=== PATIENT | male | born 1935 | race Caucasian/White ===

== ENCOUNTER 2016-09-16 13:03 | Emergency (ER) | payer OTHER ==
[2016-09-16] MEDS ORDERED: LORazepam 2 MG/1 ML VIAL IVP ONE (13:19)
[2016-09-16] MEDS ORDERED: ONDANSETRON 4 MG/2 ML VIAL IVP ONE (13:19)
--- NOTE | 2016-09-16 13:24 | PDOC ---
Altered Mental Status HPI - General Chief Complaint: Altered Mental Status Stated Complaint: ALTERED MENTAL STATUS, LOW EXT EDEMA Date Seen by Provider: 09/16/16 Time Seen by Provider: 13:20 Source: POSITIVE: Patient, Police, EMS Exam Limitations: POSITIVE: Clinical condition Nurse's Notes Reviewed & Considered: Yes - History of Present Illness Initial Comments: This is an 81-year-old male who comes in with tangential thoughts and pressured speech. Patient was brought in by Police Department because of altered mental status with pressured speech and tangential thoughts. He was seen in [facility] just a few days ago. His son, who lives in [place], has been contacted. His son states that he had a rapid change in mental status. Review of systems is unavailable because of the patient's clinical condition. Timing: REPORTS: Unknown Duration: Unknown Patient Normals: REPORTS: Alert, Oriented x3 Similar Symptoms Previously: Yes Recent Care Received: REPORTS: Recently Seen, Treated by MD Any Prior Injuries Related to Current Complaint?: No - Patient Allergies Allergies/Adverse Reactions: Allergies Allergy/AdvReac Type Severity Reaction Status Date / Time No Known Allergies Allergy Unverified 09/16/16 13:30 ROS - Limitations ROS Limitations: Mental Impairment, Other (please comment) (Due to patient's tangential thoughts and pressured speech further review of systems is unavailable.) Altered Mental Physical Exam - General Appearance General Appearance: POSITIVE: Alert, Cooperative - HEENT HEENT: POSITIVE: Head Inspection Nml, Eyes Inspection Nml, Ears Inspection Nml, Nose Inspection Nml, Oral/Dental Inspect. Nml, Pharynx Inspect. Nml, PERRL, EOMI , Dry Mucous Membranes - Pupil Size Pupil Size: 4 mm: Bilateral - Neuro/Psych Neurological: POSITIVE: Denies Neuro Symptoms Cranial Nerves: POSITIVE: Normal As Tested, No Evidence of Acute CVA Cerebellar: POSITIVE: Normal As Tested Peripheral Exam: POSITIVE: No Motor Deficits, No Sensory Deficits, Reflexes Normal Reflexes: Patellar (R): 3+, Patellar (L): 3+, Radial (R): 3+, Radial (L): 3+ - Neck Neck: POSITIVE: Supple, Non Tender - Respiratory Respiratory: POSITIVE: No Respiratory Distress, Breath Sounds Normal - Cardiovascular CVS: POSITIVE: Regular Rate and Rhythm, Heart Sounds Normal - Abdomen Abdomen: Soft: (All Quadrants), Normal Bowel Sounds: (All Quadrants), Denies Tenderness: (All Quadrants), No Splenomegaly: (All Quadrants), No Hepatomegaly: (All Quadrants), No Guarding: (All Quadrants), No Rebound: (All Quadrants), No Palpable Pulse: (All Quadrants), No Palpabale Mass: (All Quadrants), No Distention: (All Quadrants), No Rigidity: (All Quadrants) - Skin Skin: POSITIVE: Normal for Race, No Rash, Warm, Dry - Extremities Extremity: Non-Tender: (All Extremities), Normal ROM: (All Extremities), Normal Inspection: (All Extremities) Altered Mental Status - Results Reviewed By Me Xrays/CTs/US Reviewed: Yes Lab Results Reviewed: Yes Lab Results:: Laboratory Results 09/16/16 09/16/16 09/16/16 Range/Units 13:19 13:32 17:42 WBC 8.04 (4.8-10.8) 10^3/uL RBC 4.64 L (4.70-6.10) 10^6/uL Hgb 14.3 (14.0-18.0) g/dL Hct 41.5 L (42.0-52.0) % MCV 89.4 (80-90) FL MCH 30.8 (27-31) PG MCHC 34.5 (33-37) g/dL RDW Std Deviation 49.8 (39-50) fL RDW Coeff of Jayson 15.5 H (11.5-14.5) % Plt Count 173 (140-350) 10*3/uL MPV 9.7 (7.4-12.2) FL Immature Gran % (Auto) 0.1 (0-5) % Neut % (Auto) 79.9 (50-80) % Lymph % (Auto) 9.3 L (10-50) % [place] % (Auto) 9.6 (5-15) % Eos % (Auto) 0.9 (0-8) % Baso % (Auto) 0.2 (0-1) % Immature Gran # (Auto) 0.01 10*3/UL Neut # (Auto) 6.42 10*3/UL Lymph # (Auto) 0.75 10*3/uL [place] # (Auto) 0.77 (0.3-0.8) 10*3/UL Eos # (Auto) 0.07 10*3/UL Baso # (Auto) 0.02 10*3/UL WBC Morphology Comment Normal morphology (NORM) Plt Morphology Comment Normal morphology (NORM) RBC Morph Comment Normal morphology (NORM) Sodium 144 (135-145) meq/L Potassium 3.7 L (3.8-5.2) meq/L Chloride 109 (98-112) meq/L Carbon Dioxide 24 (23-33) meq/L Anion Gap 11 (5-20) BUN 25 H (7-22) mg/dL Creatinine 1.0 (0.70-1.50) mg/dL Estimated GFR (>60 ml/min/1.73m(2)) BUN/Creatinine Ratio 25.00 H (6-20) Glucose 97 (78-110) mg/dL Calculated Osmolality 301.0 H (267-292) mOsm/kg Calcium 9.1 (8.7-10.7) mg/dL Magnesium 2.2 (1.6-2.4) mg/dL Total Bilirubin 1.4 H (0.3-1.2) mg/dL GGT 27 (8-78) IU/L AST 39 (21-57) IU/L ALT 44 (21-72) IU/L Alkaline Phosphatase 91 (38-126) IU/L NT-Pro-B Natriuret Pep 516 H (0-450) PG/ML Total Protein 6.2 (6.1-8.0) g/dL Albumin 3.6 (3.5-4.8) g/dL Globulin 2.6 (2.50-4.10) g/dL Albumin/Globulin Ratio 1.30 (1.3-2.0) mg/g TSH 1.91 (0.2700-4.2000) uIU/mL Free T4 1.39 (0.93-1.71) ng/dL Ur Collection Type Clean catch urine Urine Color Yellow Urine Clarity Slightly cloudy (CLEAR) Urine pH 5.5 (5.0-8.5) Ur Specific [place] >=1.030 (1.005-1.030) U Specif Grav (Refrac) 1.030 Urine Protein 100 (NEG) mg/dl Urine Glucose (UA) Negative (NEG) mg/dL Urine Ketones 80 (NEG) Urine Occult Blood Large H (NEG) Urine Nitrate Positive H (NEG) Urine Bilirubin Small (NEG) Urine Urobilinogen 1.0 (0.2) EU/dL Ur Leukocyte Esterase Small (NEG) Urine RBC 1-3 (NONE) /hpf Urine WBC 15-24 (NONE) Ur Squamous Epith Cells Few (NONE) Ur Renal Epithelial Cell None (NONE) Urine Crystals None Urine Bacteria Few (NONE) Urine Casts None (NONE) Urine Mucus Few (NONE) Urine Trichomonas None (NONE) Urine Yeast None (NONE) Ur Culture Indicated? Culture set Salicylates < 1.0 (0-20) mg/dl Urine Opiates Screen Negative (NEG) Ur Buprenorphine Negative (NEG) Ur Oxycodone Screen Negative (NEG) Urine Methadone Screen Negative (NEG) Ur Propoxyphene Screen Negative (NEG) Acetaminophen < 10.0 (0-30) ug/mL Barbiturate Screen Negative (NEG) U Tricyclic Antidepress Negative (NEG) Phencyclidine Screen Negative (NEG) Amphetamines Screen Negative (NEG) U Methamphetamines Scrn Negative (NEG) Benzodiazepines Screen Positive H (NEG) Cocaine Screen Negative (NEG) U Marijuana (THC) Screen Negative (NEG) Serum Alcohol < 10 (0-10) mg/dL EKG Interpreted/Reviewed By Me:: Yes EKG Interpretation:: POSITIVE: Normal Sinus Rhythm - Patient's Progress Pain Medication Addressed: POSITIVE: Not Applicable Re-Examine Time:: 15:19 Re-Examine Time: 18:23 Status: POSITIVE: Unchanged MDM / ED Course: Patient was evaluated, an IV started, blood drawn and sent to the lab for studies, CT scan of his head was obtained. Findings: CBC shows white count to be normal. Comprehensive metabolic panel is unremarkable. CT scan of his head shows no acute intracranial abnormalities. EKG per my interpretation shows normal sinus rhythm. Urinalysis is positive for bacteria and nitrites. Assessment: Manic episode. #2 urinary tract infection. Plan: Patient has been accepted at [facility]. He receives Rocephin IV, normal saline, Zofran, and a prescription for Keflex for urinary tract infection. Antibiotics Given: Yes Patient Care Time - Estimated PCT Patient Care Time (In Minutes): 60 Vital Signs - Recent Vital Signs Vital Signs: Vital Signs (Last 8 hours) Temp Pulse Resp BP Pulse Ox 09/16/16 18:17 97 F 63 16 157/72 96 09/16/16 13:15 97.8 F 82 20 154/98 98 - VS Reviewed Vital Signs Reviewed: Yes Discharge Clinical Impression: Urinary tract infectious disease, Manic behavior Discharge Disposition: Transferred to Tertiary Care Facility Condition: Stable Patient Instructions Given at Discharge: Urinary Tract Infection in Men (ED), Bipolar Disorder (ED) Date Decision to Transfer to Another Facility: 09/16/16 Time Decision to Transfer to Another Facility: 18:26
[2016-09-16 13:41] LABS: HEMATOCRIT 41.5 % (42.0-52.0); HEMOGLOBIN 14.3 g/dL (14.0-18.0); MEAN CORPUSCULAR HEMOGLOBIN 30.8 PG (27-31); MEAN CORPUSCULAR HGB CONC 34.5 g/dL (33-37); MEAN CORPUSCULAR VOLUME 89.4 FL (80-90); RED BLOOD COUNT 4.64 10^6/uL (4.70-6.10)
[2016-09-16 13:42] LABS: BASOPHILS # (AUTO) 0.02 10*3/UL; BASOPHILS % (AUTO) 0.2 % (0-1); EOSINOPHILS # (AUTO) 0.07 10*3/UL; EOSINOPHILS % (AUTO) 0.9 % (0-8); LYMPHOCYTES # (AUTO) 0.75 10*3/uL; MEAN PLATELET VOLUME 9.7 FL (7.4-12.2); MONOCYTES # (AUTO) 0.77 10*3/UL (0.3-0.8); MONOCYTES % (AUTO) 9.6 % (5-15); NEUTROPHILS # (AUTO) 6.42 10*3/UL; NEUTROPHILS % (AUTO) 79.9 % (50-80); PLATELET MORPHOLOGY COMMENT NORMAL MORPHOLOGY (NORM); RBC MORPHOLOGY COMMENT NORMAL MORPHOLOGY (NORM); WBC MORPHOLOGY COMMENT NORMAL MORPHOLOGY (NORM)
[2016-09-16 13:47] LABS: BLOOD UREA NITROGEN 25 mg/dL (7-22); CALCIUM 9.1 mg/dL (8.7-10.7); GAMMA GLUTAMYL TRANSPEPTIDASE 27 IU/L (8-78); MAGNESIUM 2.2 mg/dL (1.6-2.4); SERUM ALBUMIN 3.6 g/dL (3.5-4.8)
--- NOTE | 2016-09-16 14:36 | DI ---
CT HEAD W/O CONTRAST,09/16/2016 1:19 PM: Clinical History: Altered mental status. Previous Exam: None at this facility. Findings: Multiple helically acquired CT images are obtained through the brain without contrast, and demonstrat e mild diffuse age-related volume loss. There is no mass, hemorrhage or midline shift. The surroundin g soft tissue and osseous structures are unremarkable. Impression: Normal CT head for age.
[2016-09-16 16:11] LABS: SALICYLATE < 1.0 mg/dl (0-20)
[2016-09-16 16:27] LABS: FREE T4 (FREE THYROXINE) 1.39 ng/dL (0.93-1.71)
[2016-09-16 17:49] LABS: BILIRUBIN,URINE SMALL (NEG); CLARITY,URINE Slightly Cloudy (CLEAR); COLOR,URINE YELLOW; GLUCOSE, URINE (UA) NEGATIVE (NEG); NITRATE,URINE POSITIVE (NEG); OCCULT BLOOD,URINE LARGE (NEG); PH,URINE 5.5 (5.0-8.5); PROTEIN,URINE 100 mg/dl (NEG)
--- NOTE | 2016-09-16 17:50 | EKG ---
[address] [address] Measurements Intervals [place] Rate: 69 P: 77 [place]: 147 QRS: -3 QRSD: 110 T: 39 QT: 415 QTc: 434 Interpretive Statements SINUS RHYTHM WITH MARKED SINUS ARRHYTHMIA LOW QRS VOLTAGE IN EXTREMITY LEADS No previous ECG available for comparison Electronically Signed On 09-16-16 19:48:40 MDT by Be Schneider [email or web address]
[2016-09-16 18:00] LABS: BACTERIA,URINE FEW; SQUAMOUS EPITHELIAL CELL,UR FEW; URINE SAMPLE TYPE CLEAN CATCH URINE
[2016-09-16 18:01] LABS: AMPHETAMINE SCREEN NEGATIVE (NEG); CANNABINOID SCREEN,URINE NEGATIVE (NEG); COCAINE SCREEN NEGATIVE (NEG); METHADONE URINE SCREEN NEGATIVE (NEG); METHAMPHETAMINES SCREEN,URINE NEGATIVE (NEG); OPIATE SCREEN,URINE NEGATIVE (NEG)
[2016-09-16] MEDS ORDERED: cefTRIAXone Inj 2 GM in Sodium Chloride 0.9% 100 ML IV ONE (18:22)
[2016-09-16] MEDS ORDERED: Sodium Chloride 0.9% 50 ML IV ONE (18:47)
[2016-09-17 01:07] VITALS: RESP 20; TEMP 97.8
== END 2016-09-16 20:11 ==
LOC: ER 13:03
DX: F30.9 Manic episode, unspecified (principal); N39.0 Urinary tract infection, site not specified; R41.82 Altered mental status, unspecified; R47.89 Other speech disturbances
CPT/HCPCS: 70450; 80053; 80305; 80320; 80329 ×2; 81001; 81003; 82977; 83735; 83880; 84439; 84443; 85025; 87077; 87088; 87186 ×2; 93005; 93010; 96365; 96375; 99284 ×2; J0696; J2060; J2405; J7050